=== PATIENT | female | born 1990 | race Caucasian/White ===

== ENCOUNTER → 2017-08-22 | Outpatient (CLI) | payer OTHER ==
[~2017-08-22] MED LIST: BCPILLS PO
[2017-08-22 16:49] LABS: HEMOGLOBIN 14.6 g/dL (12.0-16.0); MEAN CELL VOLUME 97.4 fL (80-100); MEAN CORPUSCULAR HEMOGLOBIN 34.7 pg (25-34); MEAN CORPUSCULAR HGB CONC 35.6 g/dl (32-36); MEAN PLATELET VOLUME 10.5 fL (7.4-10.4); PLATELET COUNT 250 K/uL (130-400); RED CELL DISTRIBUTION WIDTH CV 11.8 % (11.5-14.5); RED CELL DISTRIBUTION WIDTH SD 42.1 fL (36.4-46.3); WHITE BLOOD COUNT 7.64 K/uL (4.8-10.8)
[2017-08-22 17:04] LABS: ALT/SGPT 23 U/L (12-78); AST/SGOT 14 U/L (15-37); BLOOD UREA NITROGEN 11 mg/dl (7-18); CALCIUM 9.5 mg/dl (8.5-10.1); CARBON DIOXIDE 28 mmol/L (21-32); CREATININE 0.69 mg/dl (0.60-1.20); GLUCOSE 103 mg/dl (70-99); POTASSIUM 3.9 mmol/L (3.5-5.1); SODIUM 136 mmol/L (136-145)
[2017-08-22 17:16] LABS: ALKALINE PHOSPHATASE 83 U/L (45-117)
== END | disposition home or self-care (01) ==
LOC: C.LABBC 12:34
PROVIDERS: ATTEND Family Medicine
DX: R53.83 Other fatigue (principal)

== ENCOUNTER → 2017-08-30 | Outpatient (CLI) | payer OTHER ==
[2017-08-30 13:40] LABS: INFLUENZA B ANTIGEN Neg for Influ B (NEG)
== END | disposition home or self-care (01) ==
LOC: C.LABBC 11:58
PROVIDERS: ATTEND Family Medicine
DX: R53.83 Other fatigue (principal); R19.7 Diarrhea, unspecified; R11.2 Nausea with vomiting, unspecified

== ENCOUNTER → 2017-09-27 | Outpatient (CLI) | payer OTHER ==
--- NOTE | 2017-09-27 16:26 | ECHOCARDIOGRAM REPORT ---
*NOTICE TO RECEIVING [facility] This information is strictly Confidential and protected under [place] law. [place] law prohibits you from making any further disclosure of this information unless further disclosure is expressly permitted by the written consent of the person to whom it pertains or is authorized by law. A general authorization for the release of medical or other information is not sufficient for this purpose. Hospital accepts no responsibility if the information is made available to any other person, INCLUDING THE PATIENT. Interpretation Summary * Name: VLADIMIR MEDRANO Study Date: 09/27/2017 12:50 PM BP: 112/72 mmHg * Patient Location: [facility] HR: 76 * : 1990 (M/d/yyyy) Gender: Female Height: 64 in * Age: 26 yrs Ethnicity: CA Weight: 185 lb * Ordering Physician: Kleber Park * Referring Physician: Danica Ardon * Performed By: Jatin Mckinley RCS * * Reason For Study: Cough, Fatigue * BSA: 1.9 m2 * -- Conclusions -- * 1. Normal left ventricular size and systolic function. EF 55-60%. No regional wall motion abnormalities. No left ventricular hypertrophy. No significant diastolic dysfunction. * 2. No significant valvular abnormalities. * 3. No significant pericardial effusion visualized. * 4. No prior study available for comparison. Procedure Details * A complete two-dimensional transthoracic echocardiogram was performed (2D, M-mode, Doppler and color flow Doppler). Left Ventricle * Normal left ventricular size and systolic function. EF 55-60%. No regional wall motion abnormalities. No left ventricular hypertrophy. No significant diastolic dysfunction. Right Ventricle * The right ventricle is normal in size and function. * The right ventricular systolic function is normal as assessed by tricuspid annular plane systolic excursion (TAPSE) (normal >1.5 cm). Atria * The left atrial size is normal. * Right atrial size is normal. * There is no evidence of atrial septal defect, but resolution does not allow assessment for a patent foramen ovale. Mitral Valve * The mitral valve is grossly normal. * There is no mitral valve stenosis. * There is trace mitral regurgitation. Tricuspid Valve * The tricuspid valve is not well visualized, but is grossly normal. * There is no tricuspid stenosis. * There is trace tricuspid regurgitation. Aortic Valve * The aortic valve is trileaflet. * No hemodynamically significant valvular aortic stenosis. * No aortic regurgitation is present. Pulmonic Valve * The pulmonary valve is inadequately visualized, but the Doppler data is adequate for interpretation. * There is no pulmonic valvular stenosis. * There is no significant pulmonary regurgitation. Great Vessels * The aortic root is normal size. * Ascending aorta of normal dimension Pericardium/Pleural * No obvious pericardial effusion. Great Vessels * Normal inferior vena cava size and collapsability with sniff indicates a normal right atrial pressure of 3 mmHg MMode 2D Measurements and Calculations IVSd 0.83 cm IVSs 1.2 cm LVIDd 4.7 cm LVIDs 3.1 cm LVPWd 0.82 cm LVPWs 1.2 cm IVS/LVPW 1.0 FS 33.2 % EDV(Teich) 102.0 ml ESV(Teich) 39.0 ml EF(Teich) 61.8 % EDV(cubed) 103.3 ml ESV(cubed) 30.8 ml EF(cubed) 70.2 % % IVS thick 39.1 % % LVPW thick 46.5 % LV mass(C)d 127.3 grams LV mass(C)dI 67.2 grams/m\S\2 LV mass(C)s 113.1 grams LV mass(C)sI 59.8 grams/m\S\2 SV(Teich) 63.0 ml SI(Teich) 33.3 ml/m\S\2 SV(cubed) 72.5 ml SI(cubed) 38.3 ml/m\S\2 Ao root diam 2.9 cm Ao root area 6.6 cm\S\2 ACS 1.7 cm LA dimension 3.5 cm asc Aorta Diam 2.6 cm LA/Ao 1.2 LVAd ap2 29.4 cm\S\2 LVLd ap2 8.3 cm EDV(MOD-sp2) 89.5 ml EDV(sp2-el) 87.8 ml LVAs ap2 17.1 cm\S\2 LVLs ap2 6.9 cm ESV(MOD-sp2) 38.6 ml ESV(sp2-el) 36.2 ml EF(MOD-sp2) 56.8 % EF(sp2-el) 58.8 % SV(MOD-sp2) 50.9 ml SI(MOD-sp2) 26.9 ml/m\S\2 SV(sp2-el) 51.6 ml SI(sp2-el) 27.3 ml/m\S\2 Doppler Measurements and Calculations MV E max melinda 59.9 cm/sec MV A max melinda 47.2 cm/sec MV E/A 1.3 MV P1/2t max melinda 84.7 cm/sec MV P1/2t 58.4 msec MVA(P1/2t) 3.8 cm\S\2 MV dec slope 424.3 cm/sec\S\2 MV dec time 0.34 sec Ao V2 max 134.6 cm/sec Ao max PG 7.2 mmHg Ao max PG (full) 3.0 mmHg LV V1 max PG 4.3 mmHg LV V1 max 103.4 cm/sec PA V2 max 93.2 cm/sec PA max PG 3.5 mmHg RAP systole 3.0 mmHg
== END | disposition home or self-care (01) ==
LOC: C.CPL 12:23
PROVIDERS: ATTEND Nurse Practitioner Family
DX: R05 Cough (principal); R53.83 Other fatigue; R94.30 Abnormal result of cardiovascular function study, unspecified

== ENCOUNTER 2020-11-22 11:43 | Inpatient (IN) ==
[2020-11-22] MEDS ORDERED: OXYTOCIN 30 UNITS/500 ML BAG IV PRN (20:42)
[2020-11-22] MEDS ORDERED: miSOPROStoL 50 MCG TAB PO SCH (21:00)
[2020-11-22 21:24] LABS: Hematocrit (blood only) 33.2 % (37-47); Hemoglobin 11.7 g/dL (12.0-16.0); Mean Corpuscular Hgb Conc 35.2 g/dL (32-36); Mean Corpuscular Volume 96.5 fL (80-100); Mean Platelet Volume 9.9 fL (7.4-10.4); Platelet Count 291 K/uL (130-400); RDW Coefficient of Variation 13.1 % (11.5-14.5); RDW Standard Deviation 45.8 fL (36.4-46.3); Red Blood Count 3.44 M/uL (4.2-5.4); White Blood Count 13.33 K/uL (4.8-10.8)
[2020-11-23] MEDS ORDERED: miSOPROStoL 50 MCG TAB PO ONE ×2 (01:44→06:00)
[2020-11-23] MEDS: CALCIUM CARBONATE 500 MG CHEWABLE TAB PO PRN ×3 (02:02→20:25)
[2020-11-23] MEDS: LACTATED RINGER'S 1,000 ML IV PRN ×2 (10:02→12:43)
[2020-11-23] MEDS ORDERED: BUTORPHANOL TARTRATE 1 MG/ML VIAL IV ONE (10:04)
[2020-11-23] MEDS ORDERED: ePHEDrine sulfate 50 MG/ML AMP ONE (11:02)
[2020-11-23] MEDS ORDERED: SODIUM CHLORIDE 0.9% INJ 10 ML VIAL ONE (11:02)
[2020-11-23] MEDS ORDERED: BUPIVACAINE 0.25% 30 ML VIAL ONE (11:02)
[2020-11-23] MEDS ORDERED: fentaNYL citrate 100 MCG/2 ML VIAL ONE (11:03)
[2020-11-23] MEDS ORDERED: fentaNYL 2MCG/ML ROPIVACAINE 1.25MG/ML 100 ML BAG EPI ONE (11:03)
--- NOTE | 2020-11-23 11:39 | Anesthesiology Consultation ---
Date of Service November 23, 2020 Assessment & Plan Chart Review Chart Review: Patient NOT seen in Pre Admission Testing and Acceptable Risk for Labor Epidural Consults Requested none ASA ASA3 Proposed Anesthesia Anesthesia Type: Labor Epidural and CSE Additional Comments: covid test negative History Height/Weight Height: 5 ft 4 in Weight: 103.605 kg Allergies Allergy/AdvReac Type Severity Reaction Status Date / Time sumatriptan Allergy Severe "BODY Verified 11/22/20 22:02 PAIN,PASSED OUT" azithromycin Allergy Intermediate Rash Verified 11/22/20 22:02 Medications Home Medications Medication Instructions Recorded Confirmed Last Taken PNV cmb#95-ferrous fumarate-FA 1 tab PO DAILY 11/22/20 11/22/20 11/15/20 [] Active Medications Generic Name Dose Route Start Last Admin Trade Name Freq PRN Reason Stop Dose Admin Calcium Carbonate 1,000 mg 11/23/20 01:54 11/23/20 02:02 Calcium Carbonate 500 Mg Chewable Tab PO 12/23/20 01:53 1,000 mg Q6H PRN Administration Indigestion Lactated Ringer's 1,000 mls @ 125 mls/hr 11/22/20 20:42 11/23/20 11:05 Lr IV 11/24/20 20:41 999 mls/hr .Q8H PRN Infusion L&D Protocol Protocol Past Medical History Medical History No known health problems Exercise / Class Metabolic Activity II 4-5 Yardwork/Stairs/Walk up hill Past Surgical History Surgical History No history of previous surgery Past Anesthesia History No Hx of Anesthesia Complications and No Family Hx of Anesthesia Complications History of PONV No Hx of PONV and No Hx of Motion Sickness Social History Smoking Status: Heavy tobacco smoker tobacco type: cigarettes Smoking cigarettes per day: 20 Do You Dip or Chew Tobacco: No Hx Alcohol Use: No Hx Substance Use: No substance use type: does not use Physical Exam Vital Signs Last Vital Signs Temp 36.5 C 11/23/20 09:56 Pulse 76 11/23/20 10:01 Resp 22 11/23/20 09:56 BP 131/68 11/23/20 10:01 Testing Laboratory Results 11/22/20 21:07
[2020-11-23] MEDS ORDERED: NALOXONE HCL 0.4 MG/1 ML VIAL/CARP IV PRN (12:19)
[2020-11-23] MEDS ORDERED: ePHEDrine sulfate 50 MG/ML AMP IV PRN (12:19)
[2020-11-23] MEDS ORDERED: NALOXONE HCL 1 MG in SODIUM CHLORIDE 0.9% 1000ML 1,000 ML IV PRN (12:19)
[2020-11-23] MEDS ORDERED: PROMETHAZINE HCL 25 MG in SODIUM CHLORIDE 0.9% 50 ML IV PRN (12:19)
[2020-11-23] MEDS ORDERED: diphenhydrAMINE 50 MG/ML VIAL IV PRN (12:19)
[2020-11-23] MEDS ORDERED: fentaNYL 2MCG/ML ROPIVACAINE 1.25MG/ML 100 ML BAG EPI PRN (12:19)
[2020-11-23] MEDS ORDERED: ONDANSETRON INJ 2 MG/ML 2 ML VIAL IV PRN (12:19)
[2020-11-23] MEDS ORDERED: OXYTOCIN 30 UNITS/500 ML BAG IV PRN ×2 (12:27→14:15)
[2020-11-23] MEDS ORDERED: bisacodyL 10 MG SUPP PR PRN (14:15)
[2020-11-23] MEDS ORDERED: HYDROCORTISONE ACETATE 25 MG SUPP PR PRN (14:15)
[2020-11-23] MEDS ORDERED: ACETAMINOPHEN W/CODEINE #3 1 TAB PO PRN (14:15)
[2020-11-23] MEDS ORDERED: BENZOCAINE 20% AER SPR 82.5 GM CAN EXT PRN (14:15)
[2020-11-23] MEDS ORDERED: DIPHTHERIA/TETANUS/PERTUSSIS 0.5 ML SYR/VIAL IM ONE (14:15)
[2020-11-23] MEDS ORDERED: SUPERCREAM 0.870% 15 GM JAR EXT PRN (14:15)
[2020-11-23] MEDS ORDERED: oxyCODONE/ACETAMINOPHEN 5mg/325mg TAB PO PRN (14:15)
--- NOTE | 2020-11-23 14:45 | Anesthesia Procedure Note ---
Date of Service November 23, 2020 Anesthesia Post Epidural Note Vital Signs Vital Signs: Temp Pulse Resp BP Pulse Ox 36.5 C 95 H 22 115/75 87 L 11/23/20 09:56 11/23/20 14:36 11/23/20 09:56 11/23/20 14:36 11/23/20 13:53 Notes Mental Status: alert / awake / arousable and participated in evaluation Nausea / Vomiting: adequately controlled Pain: adequately controlled Airway Patency, RR, SpO2: stable & adequate BP & HR: stable & adequate Hydration State: stable & adequate Neuraxial Anesthesia: was administered and sensory block is resolving Anesthetic Complications: no major complications apparent Epidural: Removed without complications and With tip intact
--- NOTE | 2020-11-23 14:55 | Operative Report (OR) ---
DATE OF OPERATION: 11/23/2020 DELIVERY NOTE: 1, para 1, blood type O positive, group B strep negative. Due date is 11/28/2020. Has been followed in our office for care and delivery, and last month, the cervix ripened up nicely and after 39 weeks, the patient requested induction. She was brought in for induction night before delivery, given p.o. Cytotec 3 doses. At the time she had her third dose, she was анна hard, breathing with her contractions, given IV Stadol epidural. First time I checked her after she had the epidural, she was 8 cm, paper thin. Her contractions had spaced out. We augmented with IV Pitocin. She got good pain relief, and in about an hour, she said she felt like she had to push. With about 4 pushes, she pushed out a live female via direct occiput anterior position over an intact perineum. Infant was suctioned through the mouth and the nose. Cord was allowed to pulse for 1 minute, then it was clamped and cut. Cord blood was taken. With IV Pitocin running, the placenta was removed intact. Inspection of the perineum revealed a superficial vaginal perineal laceration at 7 o'clock. The upper extent was identified and it was repaired with a running 2-0 Vicryl out and to beyond the hymenal ring. There was another very superficial laceration at 5 o'clock and this was repaired with Vicryl with about 3 tiny bites. Following this, hemostasis was excellent. The perineum was intact. All sponges were removed from the vagina. Estimated blood loss was 200 mL. I attest to the content of the Intraoperative Record and any orders documented therein. Any exception s are noted below.
[2020-11-23] MEDS: IBUPROFEN 600 MG TAB PO PRN (19:26)
[2020-11-23] MEDS: DOCUSATE SODIUM 100 MG CAP PO SCH (20:25)
[2020-11-23] MEDS: ACETAMINOPHEN 325 MG TAB PO PRN (22:32)
[2020-11-24] MEDS: IBUPROFEN 600 MG TAB PO PRN ×4 (03:00→22:04)
[2020-11-24] MEDS: ACETAMINOPHEN 325 MG TAB PO PRN ×2 (04:47→12:02)
[2020-11-24 06:37] LABS: Hemoglobin 10.7 g/dL (12.0-16.0); Mean Corpuscular Hemoglobin 33.4 pg (25-34); Mean Corpuscular Hgb Conc 34.5 g/dL (32-36); Mean Corpuscular Volume 96.9 fL (80-100); Mean Platelet Volume 9.9 fL (7.4-10.4); Platelet Count 245 K/uL (130-400); RDW Coefficient of Variation 13.2 % (11.5-14.5); RDW Standard Deviation 46.3 fL (36.4-46.3); White Blood Count 11.37 K/uL (4.8-10.8)
[2020-11-24] MEDS: PRENATAL VITAMIN 1 TAB PO SCH (08:03)
[2020-11-24] MEDS: DOCUSATE SODIUM 100 MG CAP PO SCH ×2 (08:05→22:06)
--- NOTE | 2020-11-24 09:20 | Obstetrical Progress Note ---
Date of Service November 24, 2020 Assessment & Plan Admission and Anticipated Discharge Date Admission Date: November 22, 2020 Physical Exam Physical Exam: abdomen soft and non tender no calf tenderness ambulating well vaginal bleeding scant hgb 10.7 Results & Data ([facility]) Vital Signs (Past 12 Hours) Vital Signs Temp Pulse Resp BP BP Pulse Ox 11/24/20 07:29 36.7 C 83 16 104/65 96 11/24/20 03:00 36.7 C 89 20 121/81 11/24/20 00:05 36.6 C 86 18 118/79
[2020-11-24] MEDS ORDERED: bisacodyL 5 MG TABEC PO SCH (20:00)
[2020-11-25] MEDS: IBUPROFEN 600 MG TAB PO PRN (06:25)
[2020-11-25 06:26] LABS: Hematocrit (blood only) 33.1 % (37-47); Hemoglobin 11.5 g/dL (12.0-16.0)
[2020-11-25] MEDS: PRENATAL VITAMIN 1 TAB PO SCH (08:40)
[2020-11-25] MEDS: DOCUSATE SODIUM 100 MG CAP PO SCH (08:41)
--- NOTE | 2020-11-25 09:11 | Obstetrical Progress Note ---
Date of Service November 25, 2020 Assessment & Plan Admission and Anticipated Discharge Date Admission Date: November 22, 2020 Physical Exam Physical Exam: abdomen soft and non tender no calf tenderness ambulating well vaginal bleeding scant hgb 11.5 Results & Data ([facility]) Vital Signs (Past 12 Hours) Vital Signs Temp Pulse Resp BP BP Pulse Ox 11/25/20 07:18 36.3 C L 89 16 128/86 97 11/24/20 23:15 36.5 C 72 18 121/82
== END 2020-11-25 10:58 | disposition home or self-care (01) | DRG 807 ==
LOC: 4S1 20:08 → 4S2 11-23 17:32

== ENCOUNTER 2022-12-11 11:36 | Inpatient (IN) ==
[2022-12-12] MEDS ORDERED: miSOPROStoL 50 MCG TAB PO ONE ×2 (08:13→13:30)
[2022-12-12] MEDS ORDERED: LIDOCAINE 1% LOCAL 20 ML VIAL INFIL PRN (08:13)
[2022-12-12] MEDS ORDERED: OXYTOCIN 30 UNITS/500 ML BAG IV PRN ×3 (08:13→22:38)
[2022-12-12 08:50] LABS: Hematocrit (blood only) 33.2 % (37.0-47.0); Hemoglobin 11.7 g/dl (12.0-16.0); Mean Corpuscular Hemoglobin 33.2 pg (25.0-34.0); Mean Corpuscular Hgb Conc 35.2 g/dL (32.0-36.0); Mean Corpuscular Volume 94.3 fL (80.0-100.0); Mean Platelet Volume 10.2 fL (9.4-12.4); Platelet Count 228 K/uL (130-400); RDW Coefficient of Variation 13.4 % (11.5-14.5); RDW Standard Deviation 45.9 fL (36.4-46.3); Red Blood Count 3.52 M/uL (4.20-5.40); White Blood Count 8.46 K/ul (4.8-10.8)
[2022-12-12] MEDS: LACTATED RINGER'S 1,000 ML IV PRN ×2 (18:19→19:56)
[2022-12-12] MEDS ORDERED: LIDOCAINE 2%/EPINEPHRINE 1:200,000 20 ML PF ONE (18:55)
[2022-12-12] MEDS ORDERED: fentaNYL citrate PF 100 MCG/2 ML VIAL ONE (18:55)
[2022-12-12] MEDS ORDERED: BUPIVACAINE 0.25% PF 30 ML VIAL ONE (18:55)
[2022-12-12] MEDS ORDERED: SODIUM CHLORIDE 0.9% PF INJ 10 ML VIAL ONE (18:55)
[2022-12-12] MEDS ORDERED: fentaNYL 2MCG/ML ROPIVACAINE 1.25MG/ML 100 ML BAG EPI ONE (18:56)
--- NOTE | 2022-12-12 19:33 | Anesthesiology Consultation ---
Date of Service December 12, 2022 Assessment & Plan Chart Review Chart Review: Acceptable Risk for Labor Epidural Consults Requested none History Height/Weight Height: 5 ft 5 in Weight: 103.419 kg Allergies Allergy/AdvReac Type Severity Reaction Status Date / Time sumatriptan Allergy Severe "BODY Verified 12/12/22 07:57 PAIN,PASSED OUT" azithromycin Allergy Intermediate Rash Verified 12/12/22 07:57 Medications Home Medications Medication Instructions Recorded Confirmed Last Taken No Known Home Medications 12/12/22 12/12/22 Unknown Active Medications Generic Name Dose Route Start Last Admin Trade Name Freq PRN Reason Stop Dose Admin Lactated Ringer's 1,000 mls @ 125 mls/hr 12/12/22 08:13 12/12/22 18:42 Lr IV 12/14/22 08:12 999 mls/hr .Q8H PRN Infusion L&D Protocol Protocol Past Medical History Medical History Allergic rhinitis GERD without esophagitis Migraine Tobacco use 0.5 ppd since age 20. Past Family History Family History Denies family history of Ovarian cancer Prostate cancer Myocardial infarction Breast cancer Colorectal cancer Past Surgical History Surgical History (Updated 12/12/22 @ 07:57 by Amirah Sanchez RN) H/O wisdom tooth extraction No history of previous surgery Social History Smoking Status: Current every day smoker tobacco type: cigarettes Smoking cigarettes per day: 10 Do You Dip or Chew Tobacco: No Hx Alcohol Use: No Hx Substance Use: No substance use type: does not use Physical Exam Vital Signs Last Vital Signs Temp 36.6 C 12/12/22 18:18 Pulse 114 H 12/12/22 19:31 Resp 20 12/12/22 18:18 BP 126/73 12/12/22 19:30 Pulse Ox 98 12/12/22 19:31 Testing Laboratory Results 12/12/22 08:22 Blood Type O Positive 12/12/22 08:22 Antibody Screen NEGATIVE 12/12/22 08:22
[2022-12-12] MEDS ORDERED: NALOXONE HCL 0.4 MG/1 ML VIAL/CARP IV PRN (19:35)
[2022-12-12] MEDS ORDERED: diphenhydrAMINE 50 MG/ML VIAL IV PRN (19:35)
[2022-12-12] MEDS ORDERED: BUPIVACAINE 0.25% PF 30 ML VIAL EPI STA (19:35)
[2022-12-12] MEDS ORDERED: ATROPINE SULFATE 0.1 MG/ML 10ML SYR IV PRN (19:35)
[2022-12-12] MEDS ORDERED: fentaNYL 2MCG/ML ROPIVACAINE 1.25MG/ML 100 ML BAG EPI PRN (19:35)
[2022-12-12] MEDS ORDERED: ROPIVACAINE 0.5% PF 5 MG/ML 20 ML VIAL EPI PRN (19:35)
[2022-12-12] MEDS ORDERED: SODIUM CHLORIDE 0.9% PF INJ 10 ML VIAL EPI STA (19:35)
[2022-12-12] MEDS ORDERED: ePHEDrine sulfate 50 MG/ML AMP IV PRN ×2 (19:35)
[2022-12-12] MEDS ORDERED: NALOXONE HCL 1 MG in SODIUM CHLORIDE 0.9% 1000ML 1,000 ML IV PRN (19:35)
[2022-12-12] MEDS ORDERED: SODIUM CHLORIDE 0.9% PF INJ 10 ML VIAL EPI PRN (19:35)
[2022-12-12] MEDS ORDERED: fentaNYL citrate PF 100 MCG/2 ML VIAL EPI STA (19:35)
[2022-12-12] MEDS ORDERED: fentaNYL citrate PF 100 MCG/2 ML VIAL EPI PRN (19:35)
[2022-12-12] MEDS ORDERED: NALBUPHINE HCL INJ 10 MG/ML AMP IV PRN (19:35)
[2022-12-12] MEDS ORDERED: ONDANSETRON INJ 2 MG/ML 2 ML VIAL IV PRN (19:35)
[2022-12-12] MEDS ORDERED: LIDOCAINE 2% MPF LOCAL 5 ML VIAL EPI PRN (19:35)
[2022-12-12] MEDS ORDERED: LIDOCAINE 2%/EPINEPHRINE 1:200,000 20 ML PF EPI STA (19:35)
[2022-12-12] MEDS ORDERED: BUPIVACAINE 0.25% PF 30 ML VIAL EPI PRN (19:35)
[2022-12-12] MEDS ORDERED: CALCIUM CARBONATE 500 MG CHEWABLE TAB PO PRN (20:21)
[2022-12-12] MEDS ORDERED: bisacodyL 10 MG SUPP PR PRN (22:38)
[2022-12-12] MEDS ORDERED: METHYLERGONOVINE MALEATE 0.2 MG/ML AMP IM ONE (22:38)
[2022-12-12] MEDS ORDERED: HYDROCORTISONE ACETATE 25 MG SUPP PR PRN (22:38)
[2022-12-12] MEDS ORDERED: ACETAMINOPHEN W/CODEINE #3 1 TAB PO PRN (22:38)
[2022-12-12] MEDS ORDERED: oxyCODONE/ACETAMINOPHEN 5mg/325mg TAB PO PRN (22:38)
[2022-12-12] MEDS ORDERED: DIPHTHERIA/TETANUS/PERTUSSIS 0.5mL SYR/VIAL (Age 7+yrs) IM ONE (22:38)
[2022-12-12] MEDS ORDERED: BENZOCAINE 20% AER SPR 82.5 GM CAN EXT PRN (22:38)
--- NOTE | 2022-12-13 00:20 | Anesthesia Procedure Note ---
Date of Service December 13, 2022 Anesthesia Post Epidural Note Vital Signs Vital Signs: Temp Pulse Resp BP Pulse Ox 36.8 C 83 18 121/91 97 12/12/22 21:39 12/13/22 00:16 12/12/22 21:39 12/13/22 00:10 12/13/22 00:16 Notes Mental Status: alert / awake / arousable Nausea / Vomiting: adequately controlled Pain: adequately controlled Airway Patency, RR, SpO2: stable & adequate BP & HR: stable & adequate Hydration State: stable & adequate Neuraxial Anesthesia: was administered and sensory block is resolving Anesthetic Complications: no major complications apparent and Pt Satisfied with anesthetic care Epidural: Removed without complications and With tip intact
[2022-12-13] MEDS: IBUPROFEN 600 MG TAB PO PRN ×5 (01:07→17:24)
--- NOTE | 2022-12-13 05:21 | Delivery Summary ---
She is a 2, para 2, blood type is O positive, group B strep negative. Her due date is 2022, making her 39 weeks 3 days. She was brought in for induction. She is about a half a pack a da y smoker. She was about 3 cm when she was brought in. She was given p.o. Cytotec 2 doses. Then her m embranes were ruptured surgically and was started on Pitocin. She received epidurals, got good pain relief. She went to full dilatation. With about 3 pushes, pushed out a live via direct occipu t anterior position. There was an extremely tight nuchal cord around the shoulders, which I could no t free up. I had to clamp in 2 spots and then cut and then I delivered the rest of the infant withou t difficulty. With IV Pitocin running, the placenta was removed intact. Following delivery, gave he r an IM shot of Methergine. Estimated blood loss was 100 mL. There was a very small superficial lace ration at 4 o'clock in the vaginal opening, which was repaired with a 3-0 Vicryl. Following this, he mostasis was good. Vaginal exam revealed no hematoma formation or sponges in the vagina. The patien t tolerated the delivery well. Job ID: [id number]
[2022-12-13 06:46] LABS: Hemoglobin 11.2 g/dl (12.0-16.0); Mean Corpuscular Hemoglobin 32.9 pg (25.0-34.0); Mean Corpuscular Volume 94.1 fL (80.0-100.0); Mean Platelet Volume 10.4 fL (9.4-12.4); Platelet Count 210 K/uL (130-400); RDW Standard Deviation 44.8 fL (36.4-46.3); White Blood Count 10.07 K/ul (4.8-10.8)
[2022-12-13] MEDS: PRENATAL VITAMIN 1 TAB PO SCH (08:31)
[2022-12-13] MEDS: DOCUSATE SODIUM 100 MG CAP PO SCH ×2 (08:31→20:27)
--- NOTE | 2022-12-13 09:35 | Obstetrical Progress Note ---
Date of Service December 13, 2022 Assessment & Plan Admission and Anticipated Discharge Date Admission Date: December 12, 2022 Subjective abdomen soft and non tender no calf tenderness ambulating well vaginal bleeding scant hgb 11.2 Results & Data Vital Signs (Past 12 Hours) Vital Signs Temp Pulse Pulse Resp BP BP Pulse Ox 12/13/22 08:35 36.6 C 79 20 116/81 96 12/13/22 04:27 36.6 C 80 18 118/79 12/13/22 01:45 36.7 C 86 18 128/83 12/13/22 00:45 18 12/13/22 00:15 18 12/12/22 23:45 18 12/12/22 23:30 18 12/12/22 23:15 18 12/12/22 23:00 18 12/12/22 22:45 36.8 C 18 12/13/22 00:46 89 96 12/13/22 00:41 89 97 12/13/22 00:40 91 H 126/79 12/13/22 00:36 100 H 97 12/13/22 00:31 88 97 12/13/22 00:26 86 97 12/13/22 00:25 88 122/82 12/13/22 00:21 89 97 12/13/22 00:16 83 97 12/13/22 00:11 90 97 12/13/22 00:10 88 121/91 12/13/22 00:06 90 98 12/13/22 00:01 84 98 12/12/22 23:56 97 12/12/22 23:56 92 H 12/12/22 23:55 82 12/12/22 23:55 123/92 12/12/22 23:51 98 12/12/22 23:51 83 12/12/22 23:46 96 12/12/22 23:46 83 12/12/22 23:41 95 12/12/22 23:41 84 12/12/22 23:40 80 12/12/22 23:40 117/88 12/12/22 23:36 96 12/12/22 23:36 77 12/12/22 23:31 97 12/12/22 23:31 90 12/12/22 23:26 95 12/12/22 23:26 81 12/12/22 23:25 80 12/12/22 23:25 108/63 05/10/23 23:21 94 12/12/22 23:22 94 12/12/22 23:21 89 12/12/22 23:22 92 H 12/12/22 23:16 96 12/12/22 23:16 82 12/12/22 23:11 96 12/12/22 23:11 84 12/12/22 23:10 82 12/12/22 23:10 116/80 12/12/22 23:06 96 12/12/22 23:06 83 12/12/22 23:01 96 12/12/22 23:01 85 12/12/22 22:56 96 12/12/22 22:56 89 12/12/22 22:55 83 12/12/22 22:55 112/78 12/12/22 22:51 97 12/12/22 22:51 89 12/12/22 22:46 100 12/12/22 22:46 102 H 12/12/22 22:41 98 12/12/22 22:41 90 12/12/22 22:42 93 H 12/12/22 22:42 121/80 12/12/22 22:36 98 12/12/22 22:36 97 H 12/12/22 22:31 98 12/12/22 22:31 102 H 12/12/22 22:26 99 12/12/22 22:26 118 H 12/12/22 22:27 136 H 12/12/22 22:27 208/119 H 12/12/22 22:21 100 12/12/22 22:21 113 H 12/12/22 22:16 95 12/12/22 22:16 88 12/12/22 22:12 93 12/12/22 22:12 84 12/12/22 22:11 96 12/12/22 22:11 81 12/12/22 22:10 88 12/12/22 22:10 93/55 L 12/12/22 22:07 94 12/12/22 22:07 85 12/12/22 22:06 95 12/12/22 22:06 87 12/12/22 22:01 94 12/12/22 22:02 94 12/12/22 22:01 78 12/12/22 22:02 78 12/12/22 21:56 94 12/12/22 21:56 78 12/12/22 21:56 94 12/12/22 21:56 75 12/12/22 21:56 98/55 L 12/12/22 21:51 94 12/12/22 21:51 76 12/12/22 21:49 94 12/12/22 21:49 79 12/12/22 21:46 94 12/12/22 21:46 83 12/12/22 21:43 94 12/12/22 21:43 83 12/12/22 21:39 18 12/12/22 21:39 36.8 C 18 12/12/22 21:41 95 12/12/22 21:41 91 H 12/12/22 21:40 80 12/12/22 21:40 99/56 L 12/12/22 21:38 94 12/12/22 21:38 88 12/12/22 21:36 97 12/12/22 21:36 111 H O2 Del Method 12/13/22 08:35 Room Air 12/13/22 04:27 Room Air 12/13/22 01:45 Room Air 12/13/22 00:45 12/13/22 00:15 12/12/22 23:45 12/12/22 23:30 12/12/22 23:15 12/12/22 23:00 12/12/22 22:45 12/13/22 00:46 12/13/22 00:41 12/13/22 00:40 12/13/22 00:36 12/13/22 00:31 12/13/22 00:26 12/13/22 00:25 12/13/22 00:21 12/13/22 00:16 12/13/22 00:11 12/13/22 00:10 12/13/22 00:06 12/13/22 00:01 12/12/22 23:56 12/12/22 23:56 12/12/22 23:55 12/12/22 23:55 12/12/22 23:51 12/12/22 23:51 12/12/22 23:46 12/12/22 23:46 12/12/22 23:41 12/12/22 23:41 12/12/22 23:40 12/12/22 23:40 12/12/22 23:36 12/12/22 23:36 12/12/22 23:31 12/12/22 23:31 12/12/22 23:26 12/12/22 23:26 12/12/22 23:25 12/12/22 23:25 12/12/22 23:21 12/12/22 23:22 12/12/22 23:21 12/12/22 23:22 12/12/22 23:16 12/12/22 23:16 12/12/22 23:11 12/12/22 23:11 12/12/22 23:10 12/12/22 23:10 12/12/22 23:06 12/12/22 23:06 12/12/22 23:01 12/12/22 23:01 12/12/22 22:56 12/12/22 22:56 12/12/22 22:55 12/12/22 22:55 12/12/22 22:51 12/12/22 22:51 12/12/22 22:46 12/12/22 22:46 12/12/22 22:41 12/12/22 22:41 12/12/22 22:42 12/12/22 22:42 12/12/22 22:36 12/12/22 22:36 12/12/22 22:31 12/12/22 22:31 12/12/22 22:26 12/12/22 22:26 12/12/22 22:27 12/12/22 22:27 12/12/22 22:21 12/12/22 22:21 12/12/22 22:16 12/12/22 22:16 12/12/22 22:12 12/12/22 22:12 12/12/22 22:11 12/12/22 22:11 12/12/22 22:10 12/12/22 22:10 12/12/22 22:07 12/12/22 22:07 12/12/22 22:06 12/12/22 22:06 12/12/22 22:01 12/12/22 22:02 12/12/22 22:01 12/12/22 22:02 12/12/22 21:56 12/12/22 21:56 12/12/22 21:56 12/12/22 21:56 12/12/22 21:56 12/12/22 21:51 12/12/22 21:51 12/12/22 21:49 12/12/22 21:49 12/12/22 21:46 12/12/22 21:46 12/12/22 21:43 12/12/22 21:43 12/12/22 21:39 12/12/22 21:39 12/12/22 21:41 12/12/22 21:41 12/12/22 21:40 12/12/22 21:40 12/12/22 21:38 12/12/22 21:38 12/12/22 21:36 12/12/22 21:36
[2022-12-13] MEDS: ACETAMINOPHEN 325 MG TAB PO PRN ×2 (13:26→20:49)
[2022-12-13] MEDS ORDERED: bisacodyL 5 MG TABEC PO SCH (20:00)
[2022-12-14] MEDS: IBUPROFEN 600 MG TAB PO PRN ×2 (04:45→09:02)
[2022-12-14 06:35] LABS: Hematocrit (blood only) 33.2 % (37.0-47.0); Hemoglobin 11.7 g/dl (12.0-16.0)
[2022-12-14] MEDS: PRENATAL VITAMIN 1 TAB PO SCH (07:48)
[2022-12-14] MEDS: DOCUSATE SODIUM 100 MG CAP PO SCH (07:48)
--- NOTE | 2022-12-14 09:12 | Obstetrical Progress Note ---
Date of Service December 14, 2022 Assessment & Plan Admission and Anticipated Discharge Date Admission Date: December 12, 2022 Subjective abdomen soft and non tender no calf tenderness ambulating well vaginal bleeding scant hgb 11.7 Results & Data Vital Signs (Past 12 Hours) Vital Signs Temp Pulse Resp BP Pulse Ox O2 Del Method 12/13/22 23:30 76 108/73 12/13/22 23:10 36.6 C 71 18 98/63 L 97 Room Air
== END 2022-12-14 10:24 | disposition home or self-care (01) | DRG 807 ==
LOC: 4S1 12-12 07:46 → 4E2 12-13 02:03